=== PATIENT | female | born 1995 | race African-American/Black ===

== ENCOUNTER 2018-10-03 16:51 | Emergency (ER) | payer OTHER ==
[2018-10-03] MEDS ORDERED: IBUPROFEN 600 MG TABLET (FP) PO ONE (17:10)
[2018-10-03 17:11] VITALS: BP 132/69; PULSE 97; TEMP 98.7; BMI 29.3
--- NOTE | 2018-10-03 17:11 | PDOC ---
Rapid Medical Evaluation Chief Complaint: Sore Throat Time Seen by Provider: 10/03/18 17:06 Medical Evaluation: 10/03/18 17:08 22 year old female c/o throat pain and subjective fever x 3 days. pain with swallowing Pe: patient alert ox3, b/l tonsilar erythema and edema. + exudate A: pharyngitis P: rapid strep ibuprofen Discharge Disposition - Diagnosis Pharyngitis Qualifiers: Pharyngitis/tonsillitis etiology: unspecified etiology Qualified Code(s): J02.9 - Acute pharyngitis, unspecified - Referrals - Patient Instructions - Post Discharge Activity
--- NOTE | 2018-10-03 17:30 | PDOC ---
History of Present Illness - General Chief Complaint: Sore Throat Stated Complaint: THROAT PROBLEM Time Seen by Provider: 10/03/18 17:06 History Source: Patient - History of Present Illness Initial Comments: 10/03/18 18:18 Chief complaint: sore throat Patient is a healthy 22-year-old female with a history of prior strep infections , mostly in the summer who states she's had 2 days of sore throat. Patient is able to drink fluids, swallow pills. GENERAL/CONSTITUTIONAL: No fever, weakness. dizziness HEAD, EYES, EARS, NOSE AND THROAT: No change in vision. No ear pain or discharge. +sore throat. CARDIOVASCULAR: No chest pain RESPIRATORY: No shortness of breath or cough GASTROINTESTINAL: No pain, nausea, vomiting, diarrhea or constipation GENITOURINARY: No dysuria MUSCULOSKELETAL: No neck or back pain SKIN: No rash NEUROLOGIC: No headache, vertigo, loss of consciousness, or loss of sensation. GENERAL: The patient is awake, alert, and fully oriented, in no acute distress. HEAD: Normal with no signs of trauma. EYES: Pupils equal, round and reactive to light, sclera anicteric, conjunctiva clear. ENT: pharynx: +erythema, no exudate, uvula midline, no signs of peritonsillar abscess NECK: supple CHEST: clear, nontender, rr ABD: soft, nontender BACK: no tenderness or signs of injury EXTREMITIES: Normal range of motion, no edema. NEUROLOGICAL: Normal speech, normal gait. SKIN: Warm, Dry Past History - Past Medical History Allergies/Adverse Reactions: Allergies Allergy/AdvReac Type Severity Reaction Status Date / Time No Known Allergies Allergy Verified 10/03/18 17:07 Home Medications: Ambulatory Orders Amoxicillin - [Amoxicillin 500mg Capsule -] 875 mg PO BID #20 capsule 10/03/18 COPD: No - Immunization History Immunization Up to Date: Yes - Suicide/Smoking/Psychosocial Hx Smoking History: Never smoked Information on smoking cessation initiated: No Hx Alcohol Use: No Drug/Substance Use Hx: No *Physical Exam - Vital Signs Last Vital Signs Temp Pulse Resp BP Pulse Ox 98.7 F 97 H 16 132/69 97 10/03/18 17:08 10/03/18 17:08 10/03/18 17:08 10/03/18 17:08 10/03/18 17:08 Medical Decision Making - Medical Decision Making 10/03/18 18:19 22-year-old female with sore throat for 2 days, found to have pharyngitis, strep was positive. pt is able to swallow pills, drink fluids, no signs of peritonsillar abscess. Patient was started on amoxicillin 875 twice a day for 10 days *DC/Admit/Observation/Transfer Diagnosis at time of Disposition: Pharyngitis Qualifiers: Pharyngitis/tonsillitis etiology: unspecified etiology Qualified Code(s): J02.9 - Acute pharyngitis, unspecified - Discharge Dispostion Disposition: HOME Condition at time of disposition: Stable - Prescriptions Prescriptions: Amoxicillin - [Amoxicillin 500mg Capsule -] 875 mg PO BID #20 capsule - Referrals Referrals: ON STAFF,NOT [Primary Care Provider] - - Patient Instructions Printed Discharge Instructions: DI for Strep Throat Additional Instructions: Drink 2-3 L of water daily take the amoxicillin, 1 tablet every 12 hours for 10 days, do not stop an early even if you feel better Take Tylenol 650 mg every 4 hours or Motrin 600 mg every 6 hours for fever and pain Return to the nearest ER if short of breath, unable to swallow or feeling sicker Followup with your doctor in one to 2 days - Post Discharge Activity Forms/Work/School Notes: Back to Work
[2018-10-03] MEDS ORDERED: IBUPROFEN 400 MG TABLET (FP) PO ONE (17:35)
== END 2018-10-03 18:10 | disposition home or self-care (01) ==
LOC: JERFT 16:51
DX: J02.0 Streptococcal pharyngitis (principal); B95.0 Streptococcus, group A, as the cause of diseases classified elsewhere
CPT/HCPCS: 87880; 99281-25

== ENCOUNTER 2023-11-17 03:16 | Emergency (ER) | payer OTHER ==
[2023-11-17 03:21] VITALS: BP 111/76; PULSE 94; RESP 16; TEMP 98.7; BMI 29.3
== END 2023-11-17 05:35 | disposition home or self-care (01) ==
LOC: JER 03:16
DX: K13.0 Diseases of lips (principal); Y04.0XXA Assault by unarmed brawl or fight, initial encounter
CPT/HCPCS: 99283-25